=== PATIENT | female | born 1950 | race Caucasian/White ===

== ENCOUNTER 2020-05-13 18:19 | Inpatient (IN) | payer MEDICARE, MEDICAID ==
[~2020-05-13] VITALS: Ht 157 cm; Wt 78.7 kg
[~2020-05-13 18:19] MED LIST: AC325T PO; AMLO5TAB2 PO; BUPR300T PO; CALC-80 PO; CARV3.12 PO; CARV3.122 PO; CITA40TA19 PO; CYCL10TA9 PO; DCS100C PO; DIAZ5TAB3 PO; ENAL20TA PO; FESO8TAB PO; FLC1T PO; FRS325T PO; GBPN300C PO; HYDR1TAB PO; LEVO175T2 PO; LEVO175T6 PO; LISI5TAB PO; MTX2.5T PO; MULT1TAB53 PO; NF-PILO5T PO; OLN5T PO; OMEP-10 PO; OMEP20CA6 PO; ONE A DAY VITAMIN PO; OXC5T PO; OXYC15TA21 PO; TOLTA4 PO; WRF1T PO; WRF2.5T PO; ZLP10T PO
[2020-05-13] MEDS ORDERED: NS IV 1000 ML 1,000 ML IV SCH (18:29)
[2020-05-13] MEDS ORDERED: NS IV 500 ML 500 ML IV ONE (18:29)
[2020-05-13] MEDS ORDERED: RT-ALBUTEROL/IPRATROPIUM 3 ML (DUONEB) VIAL INH ONE (18:30)
[2020-05-13] MEDS ORDERED: CEFEPIME INJECTION 1,000 MG in WATER (STERILE) FOR INJECTION 10 ML IV ONE (18:30)
[2020-05-13] MEDS ORDERED: VANCOMYCIN INJECTION 1,000 MG in NS (IVPB) 250 ML IV ONE (18:30)
--- NOTE | 2020-05-13 18:39 | ED General ---
General Stated Complaint: SOA;FEVER;COUGH Source of Information: Patient, EMS Exam Limitations: No Limitations History of Present Illness Date Seen by Provider: May 13, 2020 Time Seen by Provider: 18:20 Initial Comments The patient arrives the ER by [facility] from home with chief complaint of fever, cough, shortness of breath. She's been dealing with pneumonia on an outpatient and inpatient basis through [facility] at [place], [place] for the past 6 weeks. She completed her antibiotics about 2 weeks ago and since then has been going downhill again. She has a history of COPD dependent on oxygen 2 L by nasal cannula at baseline and has chronic back pain. Her last antipyretic was the oxycodone she took this morning for her back pain. EMS reports 104.4 fever. Patient's had 4 negative test for COVID 19 with the last one being a week ago. Patient has had no sick contacts that she is aware of. She does not recall she's had a CT of her chest. She has no knowledge of any pulmonary embolisms in the past. She denies heart disease or stents. She denies blood thinners. She thinks she might have some CHF and is following outpatient with a vibrating screed operator to discover this. She follows with Dr. Fallon for primary care. She has hypertension but no diabetes. She is on infliximab for rheumatoid arthritis. She denies any history of immunocompromise, hepatitis, HIV, cancer, chemotherapy etc. Patient states that she used to be on warfarin but she does not recall why. She only takes baby aspirin now. She uses DuoNeb 4 times a day with good effect. Patient follows with Dr. Guy cardiology at [facility] every 6 months. 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 She has a history of AAA. She is being treated with prednisone outpatient for COPD by primary care. Completed that course last month. Allergies and Home Medications Allergies Coded Allergies: morphine (Unverified Adverse Reaction, Mild, MAKES PT "LOOPY", 08/19/10) Uncoded Allergies: TRIPLE ANTIBIOITC (Allergy, Mild, 11/06/11) Home Medications Acetaminophen 325 Mg Tablet, 650 MG PO Q4H PRN, (Reported) Bupropion Hcl 300 Mg Tab.sr.24h, 1 TAB PO DAILY, (Reported) Calcium Carbonate/Vitamin D3 1 Each Tablet, 1 EACH PO DAILY, (Reported) Carvedilol 3.125 Mg Tablet, 1 EACH PO BID, (Reported) Citalopram Hydrobromide 40 Mg Tablet, 1 EACH PO DAILY, (Reported) Cyclobenzaprine Hcl 10 Mg Tablet, 1 EACH PO BID, (Reported) Diazepam 5 Mg Tablet, 1 EACH PO QID, (Reported) Docusate Sodium 100 Mg Cap, 100 MG PO TID, (Reported) SUNDAY, SUNDAY AND SUNDAY Docusate Sodium 100 Mg Capsule, 100 MG PO DAILY, (Reported) SUNDAY, SUNDAY, SUNDAY AND SUNDAY. Ferrous Sulfate 325 Mg Tab, 325 MG PO BID, (Reported) Fesoterodine Fumarate 8 Mg Tab.sr.24h, 8 MG PO HS, (Reported) Folic Acid 1 Mg Tab, 1 EACH PO DAILY, (Reported) Gabapentin 300 Mg Cap, 300 MG PO BID, (Reported) Hydrocodone Bit/Acetaminophen 1 Each Tablet, 1-2 EACH PO Q4HR PRN, (Reported) Lisinopril 5 Mg Tablet, 1 EACH PO DAILY, (Reported) Methotrexate 2.5 Mg Tab, 4 EACH PO ONCE WEEKLY, (Reported) PT TAKES SATURDAYS Omeprazole 20 Mg Capsule.dr, 20 MG PO BID, (Reported) Oxycodone Hcl 5 Mg Tab, 15 MG PO TID PRN, (Reported) Pilocarpine 5 Mg Tab, 5 MG PO TID, (Reported) Tolterodine Tartrate 4 Mg Cap.sr.24h, 1 EACH PO DAILY, (Reported) Warfarin Sodium 1 Mg Tablet, 4.5 MG PO DAILY, (Reported) Zolpidem Tartrate 10 Mg Tab, 10 MG PO HS PRN, (Reported) Patient Home Medication List Home Medication List Reviewed: Yes Review of Systems Review of Systems Constitutional: chills, fever, malaise, weakness EENTM: No ear discharge, No ear pain Respiratory: cough, phlegm, short of breath, wheezing Cardiovascular: No Hx of Intervention, No palpitations, No syncope, No vascular heart diseas Gastrointestinal: No abdominal pain, No nausea, No vomiting Genitourinary: No discharge, No dysuria Musculoskeletal: see HPI, back pain (chronic); No joint pain Psychiatric/Neurological: Denies Anxiety, Denies Depressed All Other Systems Reviewed Negative Unless Noted: Yes Past Gpxxkuy-Nprkhn-Gftdzm Hx Patient Social History Alcohol Use: Denies Use Recreational Drug Use: No Smoking Status: Former Smoker Immunizations Up To Date Date of Influenza Vaccine: Jul 06, 2011 Past Medical History Reproductive Disorders: No Physical Exam-Suspected Sepsis Physical Exam Vital Signs Vital Signs - First Documented 05/13/20 18:19 Temp 39.6 Pulse 118 Resp 20 B/P (MAP) 111/84 (93) Pulse Ox 95 O2 Delivery Nasal Cannula O2 Flow Rate 2.00 Capillary Refill : Height, Weight, BMI Height: '" Weight: lbs. oz. kg; BMI Method: General Appearance: Chronically ill, Mild Distress Eyes: Bilateral Eye Normal Inspection, Bilateral Eye PERRL, Bilateral Eye EOMI HEENT: PERRL/EOMI, TMs Normal, Normal ENT Inspection; No Moist Mucous Membranes Neck: Full Range of Motion, Normal Inspection, Non Tender Respiratory: No Accessory Muscle Use, Crackles (left base), Decreased Breath Sounds (mild with oxygen sats in the upper 90s on 2 L by nasal cannula.) Cardiovascular: Regular Rate, Rhythm, Normal Peripheral Pulses Gastrointestinal: Normal Bowel Sounds, Non Tender, Soft Extremity: Normal Capillary Refill, Normal Inspection, No Pedal Edema Neurologic/Psychiatric: Alert, Oriented x3, No Motor/Sensory Deficits, Normal Mood/Affect Skin: normal color, warm/dry Focused Exam Sepsis Stage: Sepsis Possible Source: Pulmonary Lactate Level 05/13/20 18:25: Lactic Acid Level 0.98 Time of Focused Exam: 20:13 Respiratory: Chest Non Tender, No Accessory Muscle Use, Decreased Breath Sounds, Respiratory Distress (mild) Cardiovascular: Regular Rate, Rhythm, No Edema, Normal Peripheral Pulses Capillary Refill: Less Than 3 Seconds Peripheral Pulses: 2+ Dorsalis Pedis (R), 2+ Left Dors-Pedis (L) Skin: normal color, warm/dry Lactic Acid Level Laboratory Tests Test 05/13/20 18:25 Lactic Acid Level 0.98 MMOL/L (0.50-2.00) Within 3hrs of presentation: Admin fluids, Admin ABX, Blood cultures prior to ABX's, Focus exam, Lactate level Progress/Results/Core Measures Suspected Sepsis SIRS Temperature: Pulse: Respiratory Rate: Laboratory Tests 05/13/20 18:25: White Blood Count 25.0H Blood Pressure / Mean: 05/13/20 18:25: Lactic Acid Level 0.98 Laboratory Tests 05/13/20 18:25: Creatinine 1.33H, INR Comment 0.9, Platelet Count 185, Total Bilirubin 0.9 Results/Orders Lab Results Laboratory Tests Test 05/13/20 18:25 Range/Units White Blood Count 25.0 H 4.3-11.0 10^3/uL Red Blood Count 4.44 4.35-5.85 10^6/uL Hemoglobin 13.9 11.5-16.0 G/DL Hematocrit 42 35-52 % Mean Corpuscular Volume 95 80-99 FL Mean Corpuscular Hemoglobin 31 25-34 PG Mean Corpuscular Hemoglobin Concent 33 32-36 G/DL Red Cell Distribution Width 14.5 10.0-14.5 % Platelet Count 185 130-400 10^3/uL Mean Platelet Volume 11.3 H 7.4-10.4 FL Neutrophils (%) (Auto) 84 H 42-75 % Lymphocytes (%) (Auto) 9 L 12-44 % Monocytes (%) (Auto) 6 0-12 % Eosinophils (%) (Auto) 2 0-10 % Basophils (%) (Auto) 0 0-10 % Neutrophils # (Auto) 21.0 H 1.8-7.8 X 10^3 Lymphocytes # (Auto) 2.2 1.0-4.0 X 10^3 Monocytes # (Auto) 1.4 H 0.0-1.0 X 10^3 Eosinophils # (Auto) 0.4 H 0.0-0.3 10^3/uL Basophils # (Auto) 0.1 0.0-0.1 10^3/uL Neutrophils % (Manual) 86 % Lymphocytes % (Manual) 8 % Monocytes % (Manual) 4 % Eosinophils % (Manual) 2 % Blood Morphology Comment NORMAL Prothrombin Time 12.5 12.2-14.7 SEC INR Comment 0.9 0.8-1.4 Activated Partial Thromboplast Time 29 24-35 SEC Sodium Level 138 135-145 MMOL/L Potassium Level 4.9 3.6-5.0 MMOL/L Chloride Level 101 98-107 MMOL/L Carbon Dioxide Level 24 21-32 MMOL/L Anion Gap 13 5-14 MMOL/L Blood Urea Nitrogen 17 7-18 MG/DL Creatinine 1.33 H 0.60-1.30 MG/DL Estimat Glomerular Filtration Rate 40 BUN/Creatinine Ratio 13 Glucose Level 147 H 70-105 MG/DL Lactic Acid Level 0.98 0.50-2.00 MMOL/L Calcium Level 8.8 8.5-10.1 MG/DL Corrected Calcium 8.9 8.5-10.1 MG/DL Total Bilirubin 0.9 0.1-1.0 MG/DL Aspartate Amino Transf (AST/SGOT) 28 5-34 U/L Alanine Aminotransferase (ALT/SGPT) 25 0-55 U/L Alkaline Phosphatase 74 40-136 U/L C-Reactive Protein High Sensitivity 3.44 H 0.00-0.50 MG/DL B-Type Natriuretic Peptide 29.6 <100.0 PG/ML Total Protein 7.5 6.4-8.2 GM/DL Albumin 3.9 3.2-4.5 GM/DL Micro Results Microbiology 05/13/20 Influenza Types A,B Antigen ([facility]ARTA) - Final, Complete My Orders Orders - MARVIN VELASQUEZ Cbc With Automated Diff (05/13/20 18:29) Comprehensive Metabolic Panel (05/13/20 18:29) Blood Culture (05/13/20 18:29) Sputum Culture (05/13/20 18:29) Urinalysis (05/13/20 18:29) Urine Culture (05/13/20 18:29) Protime With Inr (05/13/20 18:29) Partial Thromboplastin Time (05/13/20 18:29) Chest 1 View, Ap/Pa Only (05/13/20 18:29) Ed Iv/Invasive Line Start (05/13/20 18:29) Ed Iv/Invasive Line Start (05/13/20 18:29) Vital Signs Adult Sepsis Patie Q15M (05/13/20 18:29) O2 (05/13/20 18:29) Remove Rings In Anticipation O (05/13/20 18:29) Lactic Acid Analyzer (05/13/20 18:29) Influenza A And B Antigens (05/13/20 18:29) Ns Iv 1000 Ml (Sodium Chloride 0.9%) (05/13/20 18:29) Cefepime Injection (Maxipime Injection) (05/13/20 18:30) Vancomycin Injection (Vancomycin Injecti (05/13/20 18:30) Vancomycin Injection (Vancomycin Injecti (05/13/20 19:30) Ed Iv/Invasive Line Start (05/13/20 18:29) Ns Iv 500 Ml (Sodium Chloride 0.9%) (05/13/20 18:29) Albuterol/Ipra Inhalation Soln (Duoneb I (05/13/20 18:30) Svn Small Volume Nebulizer (05/13/20 18:29) BNP (05/13/20 18:33) Hs C Reactive Protein (05/13/20 18:34) Acetaminophen Tablet (Tylenol Tablet) (05/13/20 18:45) Manual Differential (05/13/20 18:25) Ct Chest Wo (05/13/20 19:35) Medications Given in ED Current Medications Medications Dose Ordered Sig/Selwyn Route Start Time Stop Time Status Last Admin Dose Admin Acetaminophen 1,000 mg ONCE ONCE PO 05/13/20 18:45 05/13/20 18:46 DC 05/13/20 19:36 1,000 MG Albuterol/ Ipratropium 3 ml ONCE ONCE INH 05/13/20 18:30 05/13/20 18:34 DC 05/13/20 19:20 3 ML Cefepime HCl 1000 mg/Sterile Water 10 ml @ 200 mls/hr ONCE ONCE IV 05/13/20 18:30 05/13/20 18:34 DC 05/13/20 19:36 200 MLS/HR Sodium Chloride 500 ml @ 0 mls/hr Q0M ONCE IV 05/13/20 18:29 05/13/20 18:34 DC 05/13/20 19:35 1,000 MLS/HR Vancomycin HCl 750 mg/Sodium Chloride 250 ml @ 250 mls/hr ONCE ONCE IV 05/13/20 19:30 05/13/20 20:29 DC 05/13/20 20:08 250 MLS/HR Vancomycin HCl 1000 mg/Sodium Chloride 250 ml @ 250 mls/hr ONCE ONCE IV 05/13/20 18:30 05/13/20 19:29 DC 05/13/20 20:08 250 MLS/HR Vital Signs/I&O 05/13/20 05/13/20 05/13/20 18:19 18:19 19:20 Temp 39.6 Pulse 118 Resp 20 B/P (MAP) 111/84 (93) Pulse Ox 95 95 95 O2 Delivery Nasal Cannula Nasal Cannula Nasal Cannula O2 Flow Rate 2.00 2.00 2.00 Capillary Refill : Progress Note : Time: 18:39 Progress Note Septic workup to include a DuoNeb. Plan to get a CT angiogram of the chest if possible. 1500 cc should be 20 mils per kilogram. We'll get a BNP to evaluate for heart failure. She does have one sided crackles auscultated. She does not have JVD or significant bilateral peripheral edema. She's not on diuretics. We'l l give her coverage with cefepime and vancomycin. Sputum culture has been obtained. 1 g of Tylenol for fever. She's not having any hemoptysis or increased oxygen demand however pneumonia is highly likely and since she's having recurrent pneumonias a CT scan to look for tumor or other obstructive process would be reasonable. Diagnostic Imaging Diagonstic Imaging: Xray Plain Films/CT/US/NM/MRI: chest (1v) Comments [facility], [place] NAME: LUCIA SUAREZ [facility] REC#: [id number] PT STATUS: REG ER : 1950 PHYSICIAN: MARVIN VELASQUEZ MD ADMIT DATE: 05/13/20/ER Signed Date of Exam:05/13/20 CHEST 1 VIEW, AP/PA ONLY INDICATION: Shortness of air, pneumonia. Compared with exam 11/06/2019 FINDINGS: There is no focal consolidation, failure, effusion, or pneumothorax. Some chronic prominence of the right upper lung markings and/or chest wall stable. There is a central venous catheter via left subclavian tip projects near the cavoatrial junction, stable. IMPRESSION: No acute appearing abnormality and no significant change from the remote comparison. Dictated by: Dictated on workstation # [id number] Dict: 05/13/201945 Trans: 05/13/201956 MARINA [id number] Interpreted by: TIMMY WHEELER Electronically signed by: TIMMY WHEELER 05/13/201956 Reviewed: Reviewed by Me Diagonstic Imaging: CT (without IV contrast) Plain Films/CT/US/NM/MRI: chest Comments NAME: LUCIA SUAREZ [facility] REC#: [id number] PT STATUS: REG ER : 1950 PHYSICIAN: MARVIN VELASQUEZ MD ADMIT DATE: 05/13/20/ER Signed Date of Exam:05/13/20 CT CHEST WO PROCEDURE: CT chest without contrast. TECHNIQUE: Multiple contiguous axial images were obtained through the chest without the use of intravenous contrast. Auto Exposure Controls were utilized during the CT exam to meet ALARA standards for radiation dose reduction. INDICATION: Recurrent pneumonia. FINDINGS: While radiographically appearing unchanged from the comparison study, there are nodular airspace and groundglass infiltrates in the patient's right upper lobe presumed to reflect pneumonia. This is a new finding from CT of 2010. Unchanged from 2010 is area of subpleural scarring in the lingular segment of the left upper lobe, anteroinferiorly, as well as some mild air trapping. Atherosclerotic aorta is nonaneurysmal and stable. There are coronary arterial calcifications and a small chronic retrocardiac hiatal hernia. No effusion. No pneumothorax. No evidence for lymphadenopathy. No acute chest wall pathology. Visualized upper abdomen shows transverse colonic constipation and distention of the stomach. IMPRESSION: 1. Right upper lobe pneumonia. No effusion or abscess. No lymphadenopathy. Other chronic findings in the chest stable. 2. Partially visualized colonic constipation and hiatal hernia with nonspecific distention of the stomach by ingested material. Dictated by: Dictated on workstation # [id number] Dict: 05/13/201948 Trans: 05/13/201956 [facility] [id number] Interpreted by: TIMMY WHEELER Electronically signed by: TIMMY WHEELER 05/13/201956 Reviewed: Reviewed by Me Departure Communication (Admissions) Time/Spoke to Admitting Phy: 21:00 Discussed the case with Dr. Jhaveri and she agrees to admit the patient on vancomycin, cefepime and cardiac stepdown. Impression Primary Impression: Sepsis Qualified Codes: A41.9 - Sepsis, unspecified organism Additional Impression: Pneumonia Qualified Codes: J18.9 - Pneumonia, unspecified organism Disposition: ADMITTED INPATIENT Condition: Stable Admissions Decision to Admit Reason: Admit from ER (General) Decision to Admit/Date: May 13, 2020 Time/Decision to Admit Time: 19:30 Departure-Patient Inst. Referrals: NO,LOCAL PHYSICIAN (PCP/Family) Primary Care Physician MARVIN VELASQUEZ May 13, 2020 18:39
[2020-05-13 18:43] LABS: BASOPHILS # (AUTO) 0.1 10^3/uL (0.0-0.1); BASOPHILS % (AUTO) 0 % (0-10); EOSINOPHILS # (AUTO) 0.4 10^3/uL (0.0-0.3); EOSINOPHILS % (AUTO) 2 % (0-10); HEMATOCRIT 42 % (35-52); HEMOGLOBIN 13.9 G/DL (11.5-16.0); LYMPHOCYTES # (AUTO) 2.2 X 10^3 (1.0-4.0); LYMPHOCYTES % (AUTO) 9 % (12-44); MEAN CORPUSCULAR HEMOGLOBIN 31 PG (25-34); MEAN CORPUSCULAR HGB CONC 33 G/DL (32-36); MEAN CORPUSCULAR VOLUME 95 FL (80-99); MEAN PLATELET VOLUME 11.3 FL (7.4-10.4); MONOCYTES # (AUTO) 1.4 X 10^3 (0.0-1.0); MONOCYTES % (AUTO) 6 % (0-12); NEUTROPHILS % (AUTO) 84 % (42-75); PLATELET COUNT 185 10^3/uL (130-400)
[2020-05-13] MEDS ORDERED: ACETAMINOPHEN 500 MG TAB (TYLENOL) PO ONE (18:45)
[2020-05-13 18:57] LABS: ALBUMIN 3.9 GM/DL (3.2-4.5); POTASSIUM 4.9 MMOL/L (3.6-5.0)
[2020-05-13 18:58] LABS: CALCIUM 8.8 MG/DL (8.5-10.1)
[2020-05-13 18:59] LABS: TOTAL PROTEIN 7.5 GM/DL (6.4-8.2)
[2020-05-13 19:01] LABS: BILIRUBIN,TOTAL 0.9 MG/DL (0.1-1.0)
[2020-05-13 19:03] LABS: CREATININE SERUM 1.33 MG/DL (0.60-1.30)
[2020-05-13 19:08] LABS: INR 0.9 (0.8-1.4); PROTHROMBIN TIME PATIENT 12.5 SEC (12.2-14.7)
[2020-05-13] MEDS ORDERED: VANCOMYCIN INJECTION 750 MG in NS (IVPB) 250 ML IV ONE (19:30)
[2020-05-13 19:43] LABS: EOSINOPHILS % (MANUAL) 2 %; LYMPHOCYTES % (MANUAL) 8 %; MONOCYTES % (MANUAL) 4 %; NEUTROPHILS % (MANUAL) 86 %; RBC MORPH NORMAL
--- NOTE | 2020-05-13 19:50 | Diagnostic Imaging Report ---
INDICATION: Shortness of air, pneumonia. Compared with exam 11/06/2019 FINDINGS: There is no focal consolidation, failure, effusion, or pneumothorax. Some chronic prominence of the right upper lung markings and/or chest wall stable. There is a central venous catheter via left subclavian tip projects near the cavoatrial junction, stable. IMPRESSION: No acute appearing abnormality and no significant change from the remote comparison. Dictated by: Dictated on workstation # [id number]
--- NOTE | 2020-05-13 19:54 | Diagnostic Imaging Report ---
PROCEDURE: CT chest without contrast. TECHNIQUE: Multiple contiguous axial images were obtained through the chest without the use of intravenous contrast. Auto Exposure Controls were utilized during the CT exam to meet ALARA standards for radiation dose reduction. INDICATION: Recurrent pneumonia. FINDINGS: While radiographically appearing unchanged from the comparison study, there are nodular airspace and groundglass infiltrates in the patient's right upper lobe presumed to reflect pneumonia. This is a new finding from CT of 2010. Unchanged from 2010 is area of subpleural scarring in the lingular segment of the left upper lobe, anteroinferiorly, as well as some mild air trapping. Atherosclerotic aorta is nonaneurysmal and stable. There are coronary arterial calcifications and a small chronic retrocardiac hiatal hernia. No effusion. No pneumothorax. No evidence for lymphadenopathy. No acute chest wall pathology. Visualized upper abdomen shows transverse colonic constipation and distention of the stomach. IMPRESSION: 1. Right upper lobe pneumonia. No effusion or abscess. No lymphadenopathy. Other chronic findings in the chest stable. 2. Partially visualized colonic constipation and hiatal hernia with nonspecific distention of the stomach by ingested material. Dictated by: Dictated on workstation # [id number]
--- NOTE | 2020-05-13 21:55 | NUR ---
LUCIA SUAREZ admitted to room 512-1, with an admitting diagnosis of Sepsis, Pneumonia, on 05/13/20 from ED via stretcher, accompanied by ED staff.LUCIA SUAREZ introduced to surroundings, call light, bed controls, phone, TV, temperature control, lights, meal times, smoking policy, visitor policy, side rail policy, bathrooms and showers. Patient Rights given to patient in the handbook. LUCIA SUAREZ verbalizes understanding that [facility] is not responsible for the loss or damage to any personal effects or valuables that are kept in the patients possession during their hospitalization. The following Patient Care Plans were discussed with the patient: Discharge Planning, diet,pain, and activity. LUCIA SUAREZ verbalizes understanding of Interdisciplinary Patient Education. Patient and/or family were informed about the Rapid Response Team and its purpose.
[2020-05-13 22:00] VITALS: BP 117/75
[2020-05-13] MEDS ORDERED: NS IV 1000 ML 1,000 ML ONE (22:07)
[2020-05-13 22:15] VITALS: BP 101/69
[2020-05-13 22:29] VITALS: BP 117/75
[2020-05-13 22:30] VITALS: BP 112/65
[2020-05-13] MEDS ORDERED: ACETAMINOPHEN 325 MG TABLET PO PRN (22:30)
[2020-05-13] MEDS ORDERED: ONDANSETRON 4 MG/2 ML (SDV) Z0FRAN IVP PRN (22:30)
[2020-05-13] MEDS: NS IV 1000 ML 1,000 ML IV SCH (22:43)
[2020-05-13 22:45] VITALS: BP 136/71
[2020-05-13] MEDS ORDERED: IBUPROFEN 600 MG (MOTRIN) TAB PO PRN (22:45)
[2020-05-13] MEDS ORDERED: LORazepam INJ 2 MG/ML (ATIVAN) VIAL IVP PRN (22:45)
[2020-05-13] MEDS ORDERED: VANCOMYCIN INJECTION 0.1 MG in NS (IVPB) 250 ML IV SCH (22:45)
[2020-05-13 23:00] VITALS: BP 134/77
[2020-05-13] MEDS ORDERED: VASOPRESSIN 20 UNITS/NS 100 ML DRIP IV SCH ×2 (23:30)
[2020-05-13] MEDS ORDERED: NOREPINEPHRINE 4 MG/250 ML 250 ML IV SCH (23:30)
[2020-05-14] VITALS: BP 102/58
[2020-05-14] MEDS: EPINEPHRINE IV SCH ×4 (00:10→06:28)
[2020-05-14] MEDS: NS IV SCH ×4 (00:10→06:28)
[2020-05-14] MEDS ORDERED: RT-ALBUTEROL/IPRATROPIUM 3 ML (DUONEB) VIAL INH SCH (01:45)
[2020-05-14] MEDS ORDERED: RT-ALBUTEROL/IPRATROPIUM 3 ML (DUONEB) VIAL INH PRN (01:45)
[2020-05-14] MEDS ORDERED: CEFEPIME INJECTION 1,000 MG in WATER (STERILE) FOR INJECTION 10 ML IV SCH (02:00)
[2020-05-14 03:05] VITALS: BP 97/50
[2020-05-14 04:34] LABS: BASOPHILS # (AUTO) 0.1 10^3/uL (0.0-0.1); BASOPHILS % (AUTO) 0 % (0-10); EOSINOPHILS # (AUTO) 0.3 10^3/uL (0.0-0.3); EOSINOPHILS % (AUTO) 2 % (0-10); HEMATOCRIT 34 % (35-52); HEMOGLOBIN 10.7 G/DL (11.5-16.0); LYMPHOCYTES # (AUTO) 1.9 X 10^3 (1.0-4.0); LYMPHOCYTES % (AUTO) 9 % (12-44); MEAN CORPUSCULAR HEMOGLOBIN 31 PG (25-34); MEAN CORPUSCULAR HGB CONC 32 G/DL (32-36); MEAN CORPUSCULAR VOLUME 97 FL (80-99); MEAN PLATELET VOLUME 10.8 FL (7.4-10.4); MONOCYTES # (AUTO) 1.5 X 10^3 (0.0-1.0); MONOCYTES % (AUTO) 7 % (0-12); NEUTROPHILS # (AUTO) 16.9 X 10^3 (1.8-7.8); NEUTROPHILS % (AUTO) 82 % (42-75); PLATELET COUNT 137 10^3/uL (130-400); WHITE BLOOD COUNT 20.6 10^3/uL (4.3-11.0)
[2020-05-14 04:47] LABS: ALBUMIN 3.1 GM/DL (3.2-4.5); POTASSIUM 4.6 MMOL/L (3.6-5.0)
[2020-05-14 04:49] LABS: CALCIUM 7.5 MG/DL (8.5-10.1)
[2020-05-14 04:50] LABS: TOTAL PROTEIN 5.7 GM/DL (6.4-8.2)
[2020-05-14 04:52] LABS: BILIRUBIN,TOTAL 0.9 MG/DL (0.1-1.0)
[2020-05-14 04:53] LABS: CREATININE SERUM 1.23 MG/DL (0.60-1.30)
[2020-05-14] MEDS: NS IV 1000 ML 1,000 ML IV SCH ×3 (04:55→17:25)
[2020-05-14] MEDS ORDERED: LEVOTHYROXINE 125 MCG (LEVOTHROID) TABLET PO SCH (06:30)
[2020-05-14] MEDS ORDERED: LEVOTHYROXINE 50 MCG (LEVOTHROID) TAB PO SCH (06:30)
--- NOTE | 2020-05-14 06:31 | Pulmonary Consultation ---
History of Present Illness History of Present Illness Date Seen by Provider: May 14, 2020 Time Seen by Provider: 06:26 Date of Admission History of Present Illness 70yo with hx of COPD, CKD, DM presented to ED secondary to worsening fever, cough, shortness of breath. She was recently admitted and tx at [facility] for pneumonia. She completed her antibiotics about 2 weeks ago and since then has been going downhill again. Upon EMS arrival pt had fever of 104.4. Patient's had 4 negative test for COVID 19 with the last one being a week ago. Patient has had no sick contacts.I am consulted for pulmonary management. Allergies and Home Medications Allergies Coded Allergies: morphine (Unverified Adverse Reaction, Mild, MAKES PT "LOOPY", 08/19/10) Uncoded Allergies: TRIPLE ANTIBIOITC (Allergy, Mild, 11/06/11) Home Medications Acetaminophen 325 Mg Tablet, 650 MG PO Q4H PRN, (Reported) Bupropion Hcl 300 Mg Tab.sr.24h, 1 TAB PO DAILY, (Reported) Calcium Carbonate/Vitamin D3 1 Each Tablet, 1 EACH PO DAILY, (Reported) Carvedilol 3.125 Mg Tablet, 1 EACH PO BID, (Reported) Citalopram Hydrobromide 40 Mg Tablet, 1 EACH PO DAILY, (Reported) Cyclobenzaprine Hcl 10 Mg Tablet, 1 EACH PO BID, (Reported) Diazepam 5 Mg Tablet, 1 EACH PO QID, (Reported) Docusate Sodium 100 Mg Cap, 100 MG PO TID, (Reported) SUNDAY, SUNDAY AND SUNDAY Docusate Sodium 100 Mg Capsule, 100 MG PO DAILY, (Reported) SUNDAY, SUNDAY, SUNDAY AND SUNDAY. Ferrous Sulfate 325 Mg Tab, 325 MG PO BID, (Reported) Fesoterodine Fumarate 8 Mg Tab.sr.24h, 8 MG PO HS, (Reported) Folic Acid 1 Mg Tab, 1 EACH PO DAILY, (Reported) Gabapentin 300 Mg Cap, 300 MG PO BID, (Reported) Hydrocodone Bit/Acetaminophen 1 Each Tablet, 1-2 EACH PO Q4HR PRN, (Reported) Lisinopril 5 Mg Tablet, 1 EACH PO DAILY, (Reported) Methotrexate 2.5 Mg Tab, 4 EACH PO ONCE WEEKLY, (Reported) PT TAKES SATURDAYS Omeprazole 20 Mg Capsule.dr, 20 MG PO BID, (Reported) Oxycodone Hcl 5 Mg Tab, 15 MG PO TID PRN, (Reported) Pilocarpine 5 Mg Tab, 5 MG PO TID, (Reported) Tolterodine Tartrate 4 Mg Cap.sr.24h, 1 EACH PO DAILY, (Reported) Warfarin Sodium 1 Mg Tablet, 4.5 MG PO DAILY, (Reported) Zolpidem Tartrate 10 Mg Tab, 10 MG PO HS PRN, (Reported) Past Urfenva-Daywjz-Mpyinn Hx Patient Social History Alcohol Use: Denies Use Recreational Drug Use: No Smoking Status: Former Smoker 2nd Hand Smoke Exposure: No Recent Foreign Travel: No Contact w/Someone Who Travel: No Recent Infectious Disease Expo: No Recent Hopitalizations: Yes Immunizations Up To Date Date of Pneumonia Vaccine: Nov 02, 2006 Date of Influenza Vaccine: Jul 06, 2011 Seasonal Allergies Seasonal Allergies: No Past Medical History Surgeries: Yes Respiratory: Yes Cardiac: Yes Neurological: No Reproductive Disorders: No Gastrointestinal: No Musculoskeletal: Yes Endocrine: Yes Psychosocial: No Blood Disorders: Yes Review of Systems Time Seen by Provider: 06:33 Sepsis Event Evaluation Height, Weight, BMI Height: '" Weight: lbs. oz. kg; 33.67 BMI Method: Exam Exam Vital Signs Date Time Temp Pulse Resp B/P (MAP) Pulse Ox O2 Delivery O2 Flow Rate FiO2 05/14/20 03:15 98 Nasal Cannula 2.00 05/14/20 03:05 36.3 66 18 97/50 (66) 98 Nasal Cannula 2.00 05/14/20 01:00 80 05/14/20 00:27 91 93 05/14/20 00:27 93 Nasal Cannula 2.00 05/14/20 00:00 97 Nasal Cannula 2.00 05/14/20 00:00 36.8 82 20 102/58 (73) 97 Nasal Cannula 2.00 05/13/20 23:00 37.0 92 18 134/77 (96) 98 Nasal Cannula 2.00 05/13/20 22:53 90 05/13/20 22:52 97 Nasal Cannula 2.00 05/13/20 22:45 87 18 136/71 (92) 98 Nasal Cannula 2.00 05/13/20 22:30 91 20 112/65 (81) 97 Nasal Cannula 2.00 05/13/20 22:29 37.0 93 18 117/75 97 Nasal Cannula 2.00 05/13/20 22:15 90 18 101/69 (80) 96 Nasal Cannula 2.00 05/13/20 22:00 37.0 93 18 117/75 (89) 97 Nasal Cannula 2.00 05/13/20 21:50 37.6 100 20 123/84 (93) 97 Nasal Cannula 2.00 05/13/20 19:20 95 Nasal Cannula 2.00 05/13/20 18:19 39.6 118 20 111/84 (93) 95 Nasal Cannula 2.00 05/13/20 18:19 95 Nasal Cannula 2.00 I & O 05/14/20 07:00 Intake Total 4330 ml Balance 4330 ml Height & Weight Height: '" Weight: lbs. oz. kg; 33.67 BMI Method: General Appearance: Chronically ill, Mild Distress HEENT: PERRL/EOMI, TMs Normal, Normal ENT Inspection; No Moist Mucous Membranes Neck: Full Range of Motion, Normal Inspection, Non Tender Respiratory: Chest Non Tender, No Accessory Muscle Use, Decreased Breath Soun ds, Respiratory Distress (mild) Cardiovascular: Regular Rate, Rhythm, No Edema, Normal Peripheral Pulses Capillary Refill: Less Than 3 Seconds Peripheral Pulses: 2+ Dorsalis Pedis (R), 2+ Left Dors-Pedis (L) Extremity: Normal Capillary Refill, Normal Inspection, No Pedal Edema Neurologic/Psychiatric: Alert, Oriented x3, No Motor/Sensory Deficits, Normal Mood/Affect Results Lab Laboratory Tests 05/13/20 18:25 05/14/20 04:25 Assessment/Plan Assessment/Plan Sepsis with pneumonia -Continue abx and await brown cultures -IVF -Influenza is negative -Check urine strep and legionella ag -Pt has already been tested for COVID anemia -Monitor CKD -Monitor SAVAGE LEAL DO May 14, 2020 06:31
[2020-05-14] MEDS ORDERED: PANTOPRAZOLE 20 MG TABLET (PROTONIX) PO SCH (07:00)
[2020-05-14] MEDS: RT-ALBUTEROL/IPRATROPIUM 3 ML (DUONEB) VIAL INH SCH ×4 (07:20→19:29)
[2020-05-14 08:03] VITALS: BP 124/60
[2020-05-14] MEDS: CARVEDILOL 3.125 MG (COREG) TABLET PO SCH ×2 (08:06→17:25)
[2020-05-14] MEDS: ENOXAPARIN 40 MG/0.4 ML (LOVENOX) SYR SC SCH (08:06)
--- NOTE | 2020-05-14 08:13 | Diagnostic Imaging Report ---
INDICATION: Pneumonia, sepsis. TECHNIQUE: Single view chest 2:27 AM. CORRELATION STUDY: 05/13/2020 FINDINGS: Left-sided Ismtob-z-Sobh catheter tip at the right atrium, stable. Heart size and mediastinum are prominent, unchanged. Vasculature stable. Mild infiltrate of the right upper lobe is present. IMPRESSION: 1. Small residual infiltrate right mid to upper lung field. Dictated by: Dictated on workstation # [id number]
[2020-05-14] MEDS ORDERED: ASPIRIN 81 MG CHEW (CHILDREN'S ASA) PO SCH (09:00)
[2020-05-14] MEDS ORDERED: GABAPENTIN 300 MG (NEURONTIN) CAP PO SCH (09:00)
[2020-05-14] MEDS: CEFEPIME INJECTION 1,000 MG in WATER (STERILE) FOR INJECTION 10 ML IV SCH ×2 (09:56→17:25)
[2020-05-14 11:17] VITALS: BP 132/74
[2020-05-14] MEDS ORDERED: HYDR2TAB6 PO (15:28)
[2020-05-14] MEDS ORDERED: QUET25TA73 PO (15:28)
[2020-05-14] MEDS ORDERED: CITA40TA11 PO (15:28)
[2020-05-14] MEDS ORDERED: FESO8TAB PO (15:28)
[2020-05-14] MEDS ORDERED: LEVO150T6 PO (15:28)
[2020-05-14] MEDS ORDERED: OMEP20CA18 PO (15:28)
[2020-05-14] MEDS ORDERED: IPRA3AMP31 IH (15:28)
[2020-05-14] MEDS ORDERED: LISI-556 PO (15:28)
[2020-05-14] MEDS ORDERED: ALBU18HF2 INH (15:28)
[2020-05-14] MEDS ORDERED: POTA20TA15 PO (15:28)
[2020-05-14] MEDS ORDERED: FURO20TA4 PO (15:28)
[2020-05-14] MEDS ORDERED: MIRT15TA6 PO (15:28)
[2020-05-14] MEDS ORDERED: ALLO100T PO (15:28)
[2020-05-14] MEDS ORDERED: GABA300C PO (15:28)
[2020-05-14] MEDS ORDERED: OXYC10TA55 PO (15:28)
[2020-05-14] MEDS ORDERED: ATOR10TA66 PO (15:28)
[2020-05-14] MEDS ORDERED: ASPI-1238 PO (15:30)
[2020-05-14] MEDS ORDERED: FERR-84 PO (15:30)
[2020-05-14] MEDS ORDERED: CALC-823 PO (15:31)
[2020-05-14 15:45] VITALS: BP 143/71
--- NOTE | 2020-05-14 16:06 | NUR ---
SPOKE WITH THE PTS DAUGHTER (ADELAIDA) AND WENT THRU THE EXT MED HISTORY TO COMPLETE THE MED REC SEROQUEL 25MG- DIRECTIONS ARE 1 TAB HS HOWEVER PT IS ONLY TAKING TAB (12.5MG) HS FUROSEMIDE 20MG AND POTASSIUM ARE BOTH PRN SWELLING ON ALL OTHER MEDICATIONS THE DIRECTIONS MATCH THE INFORMATION GIVEN FROM [facility] OTC MEDS: ASPIRIN 81 IRON CALCIUM 500MG
[2020-05-14 17:05] LABS: BILIRUBIN,URINE NEGATIVE (NEGATIVE); CLARITY,URINE CLEAR; COLOR,URINE YELLOW; GLUCOSE, URINE (UA) NEGATIVE (NEGATIVE); KETONES,URINE NEGATIVE (NEGATIVE); LEUKOCYTE ESTERASE ,URINE TRACE (NEGATIVE); NITRITE,URINE NEGATIVE (NEGATIVE); PROTEIN,URINE NEGATIVE (NEGATIVE)
[2020-05-14 17:16] LABS: BACTERIA,URINE FEW /HPF; WAXY CASTS,URINE 0-2 /LPF; WBC,URINE 0-2 /HPF; YEAST,URINE FEW /HPF
--- NOTE | 2020-05-14 17:20 | History & Physical-Hospitalist ---
History of Present Illness HPI/Chief Complaint Brenda Escamilla is a 70 year old female with PMH HTN, CKD 3b, depression, anxiety, hypothyroidism, HLD, RA, DVT, who presented with fever, cough, and shortness of breath. She reports that she has been having recurrent pneumonia for the past couple months. She denies any chest pain. She denies nausea and vomiting. She has had diarrhea. She denies dysuria. Source: patient Exam Limitations: no limitations Date Seen 05/14/20 Time Seen by a Provider: 08:55 Attending Physician Ashli Jhaveri DO PCP No,Local Physician Referring Physician Date of Admission May 13, 2020 at 21:27 Home Medications & Allergies Home Medications Reviewed patient Home Medication Reconciliation performed by pharmacy medication reconciliations target aircraft technician and/or nursing. Patients Allergies have been reviewed. Allergies Allergies Coded Allergies morphine (Unverified Adverse Reaction, Mild, MAKES PT "LOOPY", 08/19/10) Uncoded Allergies TRIPLE ANTIBIOITC ( Allergy, Mild, 11/06/11) Past Rhcujnh-Gqitia-Rpwamv Hx Past Med/Social Hx: Reviewed Nursing Past Med/Soc Hx Patient Social History Alcohol Use: Denies Use Recreational Drug Use: No Smoking Status: Former Smoker 2nd Hand Smoke Exposure: No Recent Foreign Travel: No Contact w/other who traveled: No Recent Hopitalizations: Yes Recent Infectious Disease Expo: No Immunizations Up To Date Date of Pneumonia Vaccine: Nov 02, 2006 Date of Influenza Vaccine: Jul 06, 2011 Seasonal Allergies Seasonal Allergies: No Past Medical History Reproductive: No History of Blood Disorders: Yes Review of Systems Constitutional: fever EENTM: no symptoms reported Respiratory: cough, short of breath Cardiovascular: no symptoms reported Gastrointestinal: diarrhea Genitourinary: no symptoms reported Musculoskeletal: no symptoms reported Skin: no symptoms reported Psychiatric/Neurological: No Symptoms Reported Physical Exam Physical Exam Vital Signs Vital Signs - First Documented 05/13/20 18:19 Temp 39.6 Pulse 118 Resp 20 B/P (MAP) 111/84 (93) Pulse Ox 95 O2 Delivery Nasal Cannula O2 Flow Rate 2.00 Capillary Refill : Less Than 3 Seconds Height, Weight, BMI Height: '" Weight: lbs. oz. kg; 33.67 BMI Method: General Appearance: No Apparent Distress, Chronically ill HEENT: PERRL/EOMI, Pharynx Normal Neck: Normal Inspection, Supple Respiratory: Lungs Clear, Normal Breath Sounds, No Respiratory Distress Cardiovascular: Regular Rate, Rhythm, No Edema, No Murmur Gastrointestinal: Normal Bowel Sounds, Non Tender, Soft Extremity: Normal Inspection, Non Tender, No Pedal Edema Neurologic/Psychiatric: Alert, Oriented x3, No Motor/Sensory Deficits, Normal Mood/Affect Skin: Normal Color, Warm/Dry Results Results/Procedures Labs Laboratory Tests 05/13/20 18:25 05/14/20 04:25 Patient resulted labs reviewed. Imaging: Reviewed Imaging Report Assessment/Plan Admission Diagnosis Sepsis due to pneumonia Admission Status: Inpatient Order (span 2 midnights) Reason for Inpatient Admission: IV antibiotics Assessment and Plan Sepsis due to pneumonia -SIRS+ with leukocytosis and fever -CT revealed right upper lobe pneumonia -Flu negative -Recent COVID swab negative -Procalcitonin 0.13 -Started on Vancomycin and Cefepime -Continue IV fluids -Urine strep/legionella antigens pending -UA pending -Blood cultures pending CKD 3b -Cr 1.23, appears to be near baseline HTN HLD Depression Anxiety RA -Continue home meds History of DVT -Not currently on anticoagulation -Reported history of IVC filter Obesity -Clinically significant, no acute management needs DVT Prophylaxis: Lovenox Diagnosis/Problems Diagnosis/Problems (1) Sepsis due to pneumonia Status: Acute (2) Stage 3b chronic kidney disease Status: Chronic (3) HTN (hypertension) Status: Chronic (4) Anxiety and depression Status: Chronic (5) Hypothyroidism Status: Chronic (6) HLD (hyperlipidemia) Status: Chronic (7) Former smoker Status: Chronic (8) Rheumatoid arthritis Status: Chronic (9) History of DVT (deep vein thrombosis) Status: Chronic (10) Obesity Status: Chronic Clinical Quality Measures DVT/VTE Risk/Contraindication: Risk Factor Score Per Nursin RFS Level Per Nursing on Admit: 4+=Very High JAYLON CALDERA MD May 14, 2020 17:20
[2020-05-14] MEDS ORDERED: HYDROmorphone (DILAUDID) 2 MG TAB PO PRN (19:15)
[2020-05-14 19:57] VITALS: BP 140/81
[2020-05-14] MEDS ORDERED: VANCOMYCIN 1 GM/NS 250 ML IVPB IV SCH ×2 (20:00)
[2020-05-14] MEDS: MIRTAZAPINE 15 MG (REMERON) TAB PO SCH (20:15)
[2020-05-14] MEDS: oxyCODONE ER 10 MG (OxyCONTIN CR) TAB PO SCH (20:16)
[2020-05-14] MEDS: GABAPENTIN 300 MG (NEURONTIN) CAP PO SCH (20:17)
[2020-05-14] MEDS: FERROUS SULF 325 MG (IRON) TAB PO SCH (20:18)
[2020-05-14] MEDS: ZOLPIDEM 5 MG (AMBIEN) TAB PO PRN (20:18)
[2020-05-14] MEDS: PANTOPRAZOLE 20 MG TABLET (PROTONIX) PO SCH (20:18)
[2020-05-14] MEDS: QUEtiapine 25 MG (SEROquel) TAB IMMEDIATE RELEASE PO SCH (20:21)
[2020-05-14] MEDS ORDERED: ASPIRIN E.C. 81 MG (ECOTRIN) TAB PO SCH (21:00)
[2020-05-14] MEDS ORDERED: OMEPRAZOLE 20 MG (PriLOSEC) CAP NON-FORMULARY PO SCH (21:00)
[2020-05-14] MEDS ORDERED: NON-FORMULARY MEDICATION 1 EA EA (Mirtazapine 15 MG) PO SCH (21:00)
[2020-05-15] VITALS (7 sets, daily range): BP systolic 150–186; BP diastolic 67–86
[2020-05-15] MEDS: NS IV 1000 ML 1,000 ML IV SCH ×3 (02:47→08:48)
[2020-05-15] MEDS: CEFEPIME INJECTION 1,000 MG in WATER (STERILE) FOR INJECTION 10 ML IV SCH ×3 (03:15→17:43)
[2020-05-15] MEDS: LEVOTHYROXINE 150 MCG (LEVOTHROID) TAB PO SCH (06:44)
[2020-05-15] MEDS: RT-ALBUTEROL/IPRATROPIUM 3 ML (DUONEB) VIAL INH SCH ×4 (07:17→19:12)
[2020-05-15 07:53] LABS: BASOPHILS # (AUTO) 0.1 10^3/uL (0.0-0.1); BASOPHILS % (AUTO) 1 % (0-10); EOSINOPHILS # (AUTO) 0.4 10^3/uL (0.0-0.3); EOSINOPHILS % (AUTO) 3 % (0-10); HEMATOCRIT 34 % (35-52); HEMOGLOBIN 11.1 G/DL (11.5-16.0); LYMPHOCYTES # (AUTO) 1.7 X 10^3 (1.0-4.0); LYMPHOCYTES % (AUTO) 13 % (12-44); MEAN CORPUSCULAR HEMOGLOBIN 31 PG (25-34); MEAN CORPUSCULAR HGB CONC 33 G/DL (32-36); MEAN CORPUSCULAR VOLUME 95 FL (80-99); MONOCYTES # (AUTO) 0.9 X 10^3 (0.0-1.0); MONOCYTES % (AUTO) 7 % (0-12); NEUTROPHILS # (AUTO) 10.1 X 10^3 (1.8-7.8); NEUTROPHILS % (AUTO) 77 % (42-75); PLATELET COUNT 108 10^3/uL (130-400); WHITE BLOOD COUNT 13.1 10^3/uL (4.3-11.0)
[2020-05-15 08:23] LABS: CHLORIDE 108 MMOL/L (98-107); POTASSIUM 3.8 MMOL/L (3.6-5.0); SODIUM 138 MMOL/L (135-145)
[2020-05-15 08:24] LABS: CALCIUM 7.5 MG/DL (8.5-10.1)
[2020-05-15 08:25] LABS: GLUCOSE 95 MG/DL (70-105)
[2020-05-15 08:26] LABS: CARBON DIOXIDE 20 MMOL/L (21-32)
[2020-05-15 08:29] LABS: BUN/CREATININE RATIO 14; GFR ESTIMATED > 60
[2020-05-15] MEDS: ASPIRIN E.C. 81 MG (ECOTRIN) TAB PO SCH (08:42)
[2020-05-15] MEDS: oxyCODONE ER 10 MG (OxyCONTIN CR) TAB PO SCH ×2 (08:43→21:43)
[2020-05-15] MEDS: ENOXAPARIN 40 MG/0.4 ML (LOVENOX) SYR SC SCH (08:43)
[2020-05-15] MEDS: CARVEDILOL 3.125 MG (COREG) TABLET PO SCH ×2 (08:43→17:44)
[2020-05-15] MEDS: lisINopril 5 MG (PRINIVIL) TABLET PO SCH (08:43)
[2020-05-15] MEDS: GABAPENTIN 300 MG (NEURONTIN) CAP PO SCH ×3 (08:43→21:44)
[2020-05-15] MEDS: PANTOPRAZOLE 20 MG TABLET (PROTONIX) PO SCH ×2 (08:43→21:44)
[2020-05-15] MEDS ORDERED: NON-FORMULARY MEDICATION 1 EA EA (Citalopram Hydrobromide (Citalopram HBr) 40 MG) PO SCH (09:00)
--- NOTE | 2020-05-15 11:03 | Progress Note - Hospitalist ---
Subjective HPI/CC On Admission Date Seen by Provider: May 15, 2020 Time Seen by Provider: 11:00 Bredna Escamilla is a 70 year old female with PMH HTN, CKD 3b, depression, anxiety, hypothyroidism, HLD, RA, DVT, who presented with fever, cough, and shortness of breath. She reports that she has been having recurrent pneumonia for the past co uple months. She denies any chest pain. She denies nausea and vomiting. She has had diarrhea. She denies dysuria. Subjective/Events-last exam Pt reports feeling better. No new complaints. State she would like to go home because the bed is uncomfortable but isn't sure she's actually ready to DC. Focused Exam Lactate Level 05/13/20 18:25: Lactic Acid Level 0.98 05/13/20 23:30: Lactic Acid Level 1.00 Time of Focused Exam: 20:13 Objective Exam Vital Signs Vital Signs Date Time Temp Pulse Resp B/P (MAP) Pulse Ox O2 Delivery O2 Flow Rate FiO2 05/15/20 08:12 36.9 85 18 186/86 (119) 96 Room Air 05/15/20 04:14 0.50 Capillary Refill : Less Than 3 Seconds General Appearance: No Apparent Distress, WD/WN Respiratory: Lungs Clear, No Respiratory Distress Cardiovascular: Regular Rate, Rhythm, No Murmur Neurologic/Psychiatric: Alert, Oriented x3 Results/Procedures Lab Laboratory Tests 05/15/20 07:40 Patient resulted labs reviewed. Imaging: Reviewed Imaging Report Assessment/Plan Assessment and Plan Assess & Plan/Chief Complaint Sepsis due to pneumonia -SIRS+ with leukocytosis and fever -CT revealed right upper lobe pneumonia -Flu negative -Recent COVID swab negative -Procalcitonin 0.13 -Continue Cefepime, DC Vanc -Urine strep/legionella antigens pending still -UA NGTD -Blood cultures NGTD Acute on CKD, resolved -Cr 0.90, improved - DC IVF HTN HLD Depression Anxiety RA -Continue home meds History of DVT -Not currently on anticoagulation -Reported history of IVC filter Obesity -Clinically significant, no acute management needs DVT Prophylaxis: Lovenox Diagnosis/Problems Diagnosis/Problems (1) Sepsis due to pneumonia Status: Acute (2) Stage 3b chronic kidney disease Status: Chronic (3) History of DVT (deep vein thrombosis) Status: Chronic (4) Anxiety and depression Status: Chronic (5) HTN (hypertension) Status: Chronic (6) HLD (hyperlipidemia) Status: Chronic (7) Obesity Status: Chronic (8) Hypothyroidism Status: Chronic (9) Rheumatoid arthritis Status: Chronic (10) Former smoker Status: Chronic Clinical Quality Measures DVT/VTE Risk/Contraindication: Risk Factor Score Per Nursin RFS Level Per Nursing on Admit: 4+=Very High JASMYNE BURROWS MD May 15, 2020 11:03
[2020-05-15] MEDS: ALLOPURINOL 100 MG (ZYLOPRIM) TAB PO SCH (12:08)
--- NOTE | 2020-05-15 14:00 | NUR ---
TRANSFERRED FROM ICU TO ROOM 413 PER W/C. ALERT AND COOPERATIVE. SKIN W/D. RESP. REGULAR. LUNGS CLEAR. HEART RATE REGULAR. SALINE LOCK TO LEFT HAND IN PLACE.
--- NOTE | 2020-05-15 15:26 | Physical Therapy Evaluation ---
PT Evaluation-General Medical Diagnosis Admission Date May 13, 2020 at 21:27 Medical Diagnosis: pneumonia, sepsis Onset Date: May 13, 2020 Therapy Diagnosis Therapy Diagnosis: Impaired mobility Precautions Precautions/Isolations: Fall Prevention, Standard Precautions Referral Physician: Ashli Jhaveri DO Reason for Referral: Evaluation/Treatment Medical History Pertinent Medical History: HTN, Hypothroidism, Rheumatoid Arthritis Additional Medical History DVT, depression Current History Admit with pneumonia and sepsis. Reviewed History: Yes Social History Home: Single Level Current Living Status: Significant Other Entry Into Home: Level Entry Prior Prior Level of Function SCALE: Activities may be completed with or without assistive devices. 4-Lwzxsbxfyx-yrrcaua completes the activity by him/herself with no assistance from a helper. 5-Set-up or Clean-up Assistance-helper sets up or cleans up; patient completes activity. [place] assists only prior to or following the activity. 4-Supervision or Touching Assistance-helper provides verbal cues and/or touching/steadying and/or contact guard assistance as patient completes activity. Assistance may be provided throughout the activity or intermittently. 3-Partial/Moderate Assistance-helper does LESS THAN HALF the effort. [place] lifts, holds or supports trunk or limbs, but provides less than half the effort. 2-Substantial/Maximal Assistance-helper does MORE THAN HALF the effort. [place] lifts or holds trunk or limbs and provides more than half the effort. 9-Lvlhxdvjj-ukxjmw does ALL the effort. Patient does none of the effort to complete the activity. Or, the assistance of 2 or more helpers is required for the patient to complete the activity. If activity was not attempted, code reason: 7-Patient Refused. 9-Not Applicable-not attempted and the patient did not perform the activity before the current illness, exacerbation or injury. 10-Not Attempted due to Environmental Limitations-(lack of equipment, weather restraints, etc.). 88-Not Attempted due to Medical Conditions or Safety Concerns. Bed Mobility: 6 Transfers (B,C,W/C): 6 Gait: 6 Stairs: 6 Indoor Mobility (Ambulation): Independent Stairs: Independent Prior Devices Use: None PT Evaluation-Current Subjective No issues voiced at this time. Pt/Family Goals Return home. Objective Patient Orientation: Person, Place, Time, Situation ROM/Strength ROM Upper Extremities WFL ROM Lower Extremities WFL Strength Upper Extremities WFL Strength Lower Extremities WFL Neuromuscular (Tone, Coordination, Reflexes) Sensation and reflexes are intact. Sensory Vision: Wears Glasses Hearing: Functional Sensation Right Upper Extremit: Intact Sensation Left Upper Extremity: Intact Sensation Right Lower Extremit: Intact Sensation Left Lower Extremity: Intact Transfers Roll Left to Right (QC): 5 Sit to Lying (QC): 5 Lying to Sitting/Side of Bed(Q: 5 Sit to Stand (QC): 5 Chair/Exw-fp-Zpaul Xfer(QC): 5 Toilet Transfer (QC): 5 Gait Does the Patient Walk?: Yes Mode of Locomotion: Walk Anticipated Mode of Locomotion: Walk Walk 10 feet (QC): 5 Walk 50 ft with 2 Turns(QC): 5 Walk 150 ft (QC): 5 Distance: 210ft Gait Assistive Device: FWW Wheelchair Training Does the Pt Use a Wheelchair?: No Balance Sitting Static: Normal Sitting Dynamic: Normal Standing Static: Normal Standing Dynamic: Normal Assessment/Needs Pt was safe ambulating within her room and in the hallway. She was safe with all transfers. Rehab Potential: Good PT Short Term Goals Short Term Goals Time Frame: May 22, 2020 Roll Left & Right: 6 Sit to lyin Lying to sitting on side of be: 6 Sit to stand: 6 Chair/iat-he-dlirt transfer: 6 Toilet transfer: 6 Car transfer: 6 Walk 10 feet: 6 Walk 50 feet with two turns: 6 Walk 150 feet: 6 PT Plan Problem List Problem List: Activity Tolerance, Functional Strength, Balance, Gait, Transfer Treatment/Plan Treatment Plan: Continue Plan of Care Treatment Plan: Bed Mobility, Concurrent Therapy, Functional Activity Elisabeth, Functional Strength, Gait, Therapeutic Exercise, Transfers Treatment Duration: May 22, 2020 Frequency: 6 times per week Estimated Hrs Per Day: .25 hour per day Time/GCodes Time In: 1232 Time Out: 1250 Total Billed Treatment Time: 18 Total Billed Treatment 1, fernanda 18 MADDIE OBREGON PT May 15, 2020 15:26
[2020-05-15] MEDS ORDERED: WATER (STERILE) FOR INJECTION 10 ML ONE (17:37)
[2020-05-15] MEDS ORDERED: CEFEPIME 1 GM (MAXIPIME) VIAL ONE (17:37)
[2020-05-15] MEDS: QUEtiapine 25 MG (SEROquel) TAB IMMEDIATE RELEASE PO SCH (17:44)
[2020-05-15] MEDS: FERROUS SULF 325 MG (IRON) TAB PO SCH (17:44)
[2020-05-15] MEDS ORDERED: TOLTERODINE LA 4 MG (DETROL) CAP PO SCH (18:00)
[2020-05-15] MEDS ORDERED: NON-FORMULARY MEDICATION 1 EA EA (Fesoterodine Fumarate (Toviaz) 8 MG) PO SCH (18:00)
[2020-05-15] MEDS: ZOLPIDEM 5 MG (AMBIEN) TAB PO PRN (21:43)
[2020-05-15] MEDS: MIRTAZAPINE 15 MG (REMERON) TAB PO SCH (21:44)
[2020-05-16 00:01] VITALS: BP 153/70
[2020-05-16] MEDS ORDERED: CEFEPIME 1 GM (MAXIPIME) VIAL ONE ×2 (02:38→08:40)
[2020-05-16] MEDS ORDERED: WATER (STERILE) FOR INJECTION 10 ML ONE ×2 (02:38→08:40)
[2020-05-16] MEDS: CEFEPIME INJECTION 1,000 MG in WATER (STERILE) FOR INJECTION 10 ML IV SCH (02:47)
[2020-05-16 04:30] VITALS: BP 136/62
[2020-05-16] MEDS: LEVOTHYROXINE 150 MCG (LEVOTHROID) TAB PO SCH (06:16)
[2020-05-16] MEDS: RT-ALBUTEROL/IPRATROPIUM 3 ML (DUONEB) VIAL INH SCH ×2 (06:25→10:19)
[2020-05-16 06:27] VITALS: BP 136/62
[2020-05-16 08:25] VITALS: BP 198/79
[2020-05-16] MEDS: GABAPENTIN 300 MG (NEURONTIN) CAP PO SCH (08:49)
[2020-05-16] MEDS: CARVEDILOL 3.125 MG (COREG) TABLET PO SCH (08:50)
[2020-05-16] MEDS: ASPIRIN E.C. 81 MG (ECOTRIN) TAB PO SCH (08:50)
[2020-05-16] MEDS: oxyCODONE ER 10 MG (OxyCONTIN CR) TAB PO SCH (08:50)
[2020-05-16] MEDS: PANTOPRAZOLE 20 MG TABLET (PROTONIX) PO SCH (08:50)
[2020-05-16] MEDS: ENOXAPARIN 40 MG/0.4 ML (LOVENOX) SYR SC SCH (08:50)
[2020-05-16] MEDS: lisINopril 5 MG (PRINIVIL) TABLET PO SCH (08:50)
--- NOTE | 2020-05-16 08:50 | NUR ---
AM BLOOD PRESSURE MEDICATIONS GIVEN FOR BP 198/79. WILL RECHECK
[2020-05-16] MEDS ORDERED: CEFEPIME INJECTION 1,000 MG in WATER (STERILE) FOR INJECTION 10 ML IV SCH (10:00)
--- NOTE | 2020-05-16 10:08 | Discharge Inst-Simple/Standard ---
Discharge Inst-Standard Discharge Medications New, Converted or Re-Newed RX: Transmitted to Pharmacy Patient Instructions/Follow Up Plan of Care/Instructions/FU: please follow up with your primary care physician in the next week to follow up this hospital stay. Please follow up with your wrecking car driver on the as scheduled . Please continue to take her medications as written. Activity as Tolerated: Yes Discharge Diet: Cardiac Diet Return to The Hospital For: chest pain, shortness of breath, fever, confusion, if you feel you are getting worse. Planned Outpatient Orders/Ref. Pneu Vac Indicated: Yes JASMYNE BURROWS MD May 16, 2020 10:08
[2020-05-16] MEDS ORDERED: CEFD300C3 PO (10:10)
--- NOTE | 2020-05-16 10:31 | Discharge Summary ---
Diagnosis/Chief Complaint Date of Admission May 13, 2020 at 21:27 Date of Discharge Discharge Date: May 16, 2020 Admission Diagnosis Sepsis due to pneumonia Primary Care No,Local Physician Discharge Diagnosis (1) Sepsis due to pneumonia Status: Acute (2) Stage 3b chronic kidney disease Status: Chronic (3) History of DVT (deep vein thrombosis) Status: Chronic (4) Anxiety and depression Status: Chronic (5) HTN (hypertension) Status: Chronic (6) HLD (hyperlipidemia) Status: Chronic (7) Obesity Status: Chronic (8) Hypothyroidism Status: Chronic (9) Rheumatoid arthritis Status: Chronic (10) Former smoker Status: Chronic Discharge Summary Discharge Physical Exam Allergies: Coded Allergies: morphine (Unverified Adverse Reaction, Mild, MAKES PT "LOOPY", 08/19/10) Uncoded Allergies: TRIPLE ANTIBIOITC (Allergy, Mild, 11/06/11) Vitals & I&Os Vital Signs Date Time Temp Pulse Resp B/P (MAP) Pulse Ox O2 Delivery O2 Flow Rate FiO2 05/16/20 10:19 94 Room Air 05/16/20 08:25 36.6 80 18 198/79 (118) 05/15/20 12:06 97 05/15/20 04:14 0.50 Hospital Course Labs (last 24 hrs) Microbiology 05/14/20 Urine Culture - Preliminary, Resulted Mixed Bacterial Nena Enterococcus species 05/14/20 C. difficile GDH Antigen & Toxins - Final, Complete 05/13/20 Blood Culture - Preliminary, Resulted 05/13/20 Influenza Types A,B Antigen ([facility]) - Final, Complete Patient resulted labs reviewed. Imaging: Reviewed Imaging Report Discharge Home Medications: Active Scripts Active Cefdinir 300 Mg Capsule 300 Mg PO BID Reported Calcium (Calcium Carbonate) 500 Mg Tablet 500 Mg PO BID Aspirin EC (Aspirin) 81 Mg Tablet.dr 81 Mg PO HS Iron (Ferrous Sulfate) 325 Mg Tablet 650 Mg PO HS Iprat-Albut 0.5-3(2.5) mg/3 ml (Ipratropium/Albuterol Sulfate) 3 Ml Ampul.neb 3 Ml IH Q4H PRN Potassium Chloride 20 Meq Tab.er.prt 20 Meq PO PRN PRN Furosemide 20 Mg Tablet 20 Mg PO PRN PRN Neurontin (Gabapentin) 300 Mg Capsule 300 Mg PO TID Omeprazole 20 Mg Capsule.dr 20 Mg PO BID Mirtazapine 15 Mg Tablet 15 Mg PO HS Atorvastatin Calcium 10 Mg Tablet 10 Mg PO HS Citalopram HBr (Citalopram Hydrobromide) 40 Mg Tablet 40 Mg PO DAILY Quetiapine Fumarate 25 Mg Tablet 12.5 Mg PO 1800 TAKES OF A 25MG Lisinopril 5 Mg Tablet 5 Mg PO DAILY Ventolin Hfa (Albuterol Sulfate) 18 Gm Hfa.aer.ad 2 Puff INH Q4H PRN Allopurinol 100 Mg Tablet 300 Mg PO 1200 TAKES 3 (100MG) TABS Oxycontin (Oxycodone HCl) 10 Mg Tab.er.12h 10 Mg PO BID Hydromorphone HCl 2 Mg Tablet 2 Mg PO Q8H PRN Toviaz (Fesoterodine Fumarate) 8 Mg Tab.er.24h 8 Mg PO 1800 Levothyroxine Sodium 150 Mcg Tablet 150 Mcg PO DAILY Instructions to patient/family Please see electronic discharge instructions given to patient. Clinical Quality Measures DVT/VTE Risk/Contraindication: Risk Factor Score Per Nursin RFS Level Per Nursing on Admit: 4+=Very High JASMYNE BURROWS MD May 16, 2020 10:31
[2020-05-16 12:01] VITALS: BP 138/60
[2020-05-16] MEDS: ALLOPURINOL 100 MG (ZYLOPRIM) TAB PO SCH (12:18)
[2020-05-16 14:05] VITALS: BP 138/60
== END 2020-05-16 14:05 | disposition home or self-care (01) | DRG 871 ==
LOC: EDUNIT# 18:19 → ER 18:21 → CSD 21:27 → 4TH 05-15 14:08
PROVIDERS: ADMIT Internal Medicine; ATTEND Internal Medicine
DX: A41.9 Sepsis, unspecified organism (principal); J18.9 Pneumonia, unspecified organism; I12.9 Hypertensive chronic kidney disease with stage 1 through stage 4 chronic kidney disease, or unspecified chronic kidney disease; N18.3 Chronic kidney disease, stage 3 (moderate); F32.9 Major depressive disorder, single episode, unspecified; F41.9 Anxiety disorder, unspecified; E03.9 Hypothyroidism, unspecified; E78.5 Hyperlipidemia, unspecified; M06.9 Rheumatoid arthritis, unspecified; E66.9 Obesity, unspecified; F17.210 Nicotine dependence, cigarettes, uncomplicated; E11.22 Type 2 diabetes mellitus with diabetic chronic kidney disease; D64.9 Anemia, unspecified; Z86.718 Personal history of other venous thrombosis and embolism; Z68.31 Body mass index [BMI] 31.0-31.9, adult
CPT/HCPCS: 36415; 71045; 71250; 80048; 80053; 81000; 83605; 83880; 84145; 85007; 85025; 85027; 85610; 85730; 86141; 87040; 87070; 87077; 87088; 87186; 87205; 87324; 87449; 87804; 87899; 94640; 94760; 96365; 96375